=== PATIENT | male | born 1975 | race African-American/Black ===

== ENCOUNTER 2016-08-28 10:04 | Inpatient (IN) | payer OTHER ==
[2016-08-28 10:19] VITALS: BMI 24.6
--- NOTE | 2016-08-28 12:50 | HP ---
CIWA Score - CIWA Score Nausea/Vomitin-No Nausea/No Vomiting Muscle Tremors: 4-Moderate,w/Arms Extend Anxiety: 3 Agitation: 3 Paroxysmal Sweats: 3 Orientation: 0-Oriented Tacttile Disturbances: 0-None Auditory Disturbances: 0-None Visual Disturbances: 0-None Headache: 0-None Present CIWA-Ar Total Score: 13 Admission ROS BHS - HPI Chief Complaint: I am here because I am mandated by my adult parole officer to receive tx. Allergies/Adverse Reactions: Allergies Allergy/AdvReac Type Severity Reaction Status Date / Time shellfish derived Allergy Severe Swelling Verified 08/28/16 11:11 NKDA Allergy Uncoded 08/28/16 11:12 History of Present Illness: pt is a 41yr old male with a history of alcohol dependence only seeking detox for treatment. Exam Limitations: No Limitations - Ebola screening Have you traveled outside of the country in the last 21 days: No Have you had contact with anyone from an Ebola affected area: No Have you been sick,other than usual withdrawal symptoms: No Do you have a fever: No - Review of Systems Constitutional: No Symptoms Reported EENT: reports: No Symptoms Reported Respiratory: reports: No Symptoms reported Cardiac: reports: No Symptoms Reported GI: reports: Poor Appetite, Poor Fluid Intake : reports: No Symptoms Reported Musculoskeletal: reports: No Symptoms Reported (chonic right shoulder pain.), Joint Pain Integumentary: reports: Flushing Neuro: reports: Tingling, Tremors Endocrine: reports: Excessive Sweating, Flushing, Intolerance to Cold, Intolerance to Heat Hematology: reports: No Symptoms Reported Psychiatric: reports: Judgement Intact, Mood/Affect Appropiate, Orientated x3, Agitated, Anxious Other Systems: Reviewed and Negative Patient History - Patient Medical History Hx Anemia: No Hx Asthma: No Hx Chronic Obstructive Pulmonary Disease (COPD): No Hx Cancer: No Hx Cardiac Disorders: No Hx Congestive Heart Failure: No Hx Hypertension: No Hx Hypercholesterolemia: No Hx Pacemaker: No HX Cerebrovascular Accident: No Hx Seizures: No Hx Dementia: No Hx Diabetes: No Hx Gastrointestinal Disorders: No Hx Liver Disease: No Hx Genitourinary Disorders: No Hx Sexually Transmitted Disorders: No Hx Renal Disease (ESRD): No Hx Thyroid Disease: No Hx Human Immunodeficiency Virus (HIV): No (negative) Hx Hepatitis C: No (negative) Hx Depression: Yes (manic) Hx Suicide Attempt: Yes (thought of jumping off roof in 1992) Hx Schizophrenia: No - Patient Surgical History Past Surgical History: No Hx Neurologic Surgery: No Hx Cataract Extraction: No Hx Cardiac Surgery: No Hx Lung Surgery: No Hx Breast Surgery: No Hx Breast Biopsy: No Hx Abdominal Surgery: No Hx Appendectomy: No Hx Cholecystectomy: No Hx Genitourinary Surgery: No Hx Section: No Hx Orthopedic Surgery: No Anesthesia Reaction: No - PPD History Previous Implant?: Yes Documented Results: Negative w/o proof Implanted On Prior R Admission?: No PPD to be Administered?: Yes - Reproductive History Patient is a Female of Child Bearing Age (11 -55 yrs old): No - Smoking Cessation Smoking history: Current every day smoker Have you smoked in the past 12 months: Yes Aproximately how many cigarettes per day: 4 Hx Chewing Tobacco Use: No Initiated information on smoking cessation: Yes 'Breaking Loose' booklet given: 08/28/16 - Substance & Tx. History Hx Alcohol Use: Yes Hx Substance Use: No Substance Use Type: Alcohol Hx Substance Use Treatment: Yes - Substances Abused Alcohol-beer Route: Oral Frequency: Daily Amount used: 7 (40 oz.) beer Age of first use: 11 Date of Last Use: 08/27/16 Family Disease History - Family Disease History Family History: Denies Admission Physical Exam S - Vital Signs Vital Signs: Vital Signs - 24 hr 08/28/16 10:17 Temperature 98.1 F Pulse Rate 89 Respiratory 18 Rate Blood Pressure 128/69 - Physical General Appearance: Yes: Appropriately Dressed, Moderate Distress, Tremorous, Irritable, Sweating, Anxious HEENTM: Yes: Hearing grossly Normal, Normal Voice Respiratory: Yes: Lungs Clear, Normal Breath Sounds, No Respiratory Distress Neck: Yes: No masses,lesions,Nodules Breast: Yes: Within Normal Limits Cardiology: Yes: Regular Rhythm, Regular Rate, S1, S2 Abdominal: Yes: Normal Bowel Sounds, Non Tender Genitourinary: Yes: Within Normal Limits Back: Yes: Normal Inspection Musculoskeletal: Yes: full range of Motion Extremities: Yes: Normal Inspection, Non-Tender, Tremors Neurological: Yes: Fully Oriented, Alert, Normal Response Integumentary: Yes: Normal Color, Diaphoresis Lymphatic: Yes: Within Normal Limits - Diagnostic (1) Alcohol dependence with uncomplicated withdrawal Current Visit: Yes Status: Chronic (2) Manic depression Current Visit: Yes Status: Chronic (3) Nicotine dependence Current Visit: Yes Status: Chronic Qualifiers: Nicotine product type: cigarettes Substance use status: uncomplicated Qualified Code(s): F17.210 - Nicotine dependence, cigarettes, uncomplicated Cleared for Admission S - Detox or Rehab [facility] Level of Care: Medically Managed Detox Regimen/Protocol: Librium S Breath Alcohol Content Breath Alcohol Content: 0.027 Urine Drug Screen - Results Drug Screen Negative: Yes
[2016-08-28] MEDS ORDERED: MAGNESIUM HYDROX 2400MG/30ML ORAL SUSPENSION 30 ML CUP PO PRN (12:52)
[2016-08-28] MEDS ORDERED: MAG HYDROX/AL HYDROX/SIMETH 30 ML UNIT-DOSE CUP PO PRN (12:52)
[2016-08-28] MEDS ORDERED: P-EPHED 60MG/TRIPROLIDI 2.5MG TABLET PO PRN (12:52)
[2016-08-28] MEDS ORDERED: hydrOXYzine PAMOATE 50 MG CAPSULE (FP) PO PRN (12:52)
[2016-08-28] MEDS ORDERED: chlordiazePOXIDE HCL 25 MG CAPSULE PO PRN (12:52)
[2016-08-28] MEDS ORDERED: ACETAMINOPHEN 325 MG TABLET (FP) PO PRN (12:52)
[2016-08-28] MEDS ORDERED: MENTHOL/PHENOL 1 EACH UD MM PRN (12:52)
[2016-08-28] MEDS ORDERED: LOPERAMIDE HCL 2 MG CAPSULE PO PRN (12:52)
[2016-08-28] MEDS ORDERED: MAGNESIUM CITRATE 300 ML BOTTLE PO PRN (12:52)
[2016-08-28] MEDS ORDERED: guaiFENesin/D-METHORPHAN HB 10 ML UNIT-DOSE CUPS PO PRN (12:52)
[2016-08-28] MEDS ORDERED: IBUPROFEN 400 MG TABLET (FP) PO PRN (12:52)
[2016-08-28] MEDS ORDERED: chlordiazePOXIDE HCL 25 MG CAPSULE PO ONE (14:13)
[2016-08-28 15:17] LABS: HIV 1 & 2 AB NEGATIVE; HIV 1 AGp24 NEGATIVE
[2016-08-28 15:50] LABS: URINE APPEARANCE CLEAR; URINE BILIRUBIN NEGATIVE (NEGATIVE); URINE BLOOD NEGATIVE (NEGATIVE); URINE COLOR COLORLESS; URINE GLUCOSE (UA) NEGATIVE (NEGATIVE); URINE KETONE NEGATIVE (NEGATIVE); URINE LEUK ESTERASE NEGATIVE (NEGATIVE); URINE NITRITE NEGATIVE (NEGATIVE); URINE PROTEIN NEGATIVE (NEGATIVE); URINE UROBILINOGEN NEGATIVE E.U./dl (0.2-1.0)
[2016-08-28] MEDS: chlordiazePOXIDE HCL 25 MG CAPSULE PO SCH ×2 (17:19→22:17)
[2016-08-28] MEDS: METHYL SALICYLATE/MENTHOL OINT 30 GM TUBE TP SCH (22:16)
[2016-08-28] MEDS: THIAMINE HCL 100 MG TABLET (FP) PO SCH (22:16)
[2016-08-28] MEDS: diphenhydrAMINE HCL 50 MG CAPSULE PO PRN (22:17)
--- NOTE | 2016-08-28 23:36 | EKG ---
Test Reason : Blood Pressure : / mmHG Vent. Rate : 087 BPM Atrial Rate : 087 BPM P-R Int : 130 ms QRS Dur : 090 ms QT Int : 364 ms P-R-T Axes : 071 060 061 degrees QTc Int : 438 ms NORMAL SINUS RHYTHM NORMAL ECG NO PREVIOUS ECGS AVAILABLE Confirmed by ELIAN FRIAS MD ([id number]) on 08/28/2016 11:36:15 PM Referred By: Mariano Guy Confirmed By:ELIAN FRIAS MD
[2016-08-29] MEDS: chlordiazePOXIDE HCL 25 MG CAPSULE PO SCH ×4 (05:50→22:27)
[2016-08-29 09:49] LABS: MCH 30.3 pg (25.7-33.7); MCHC 33.1 g/dl (32.0-35.9); MEAN CELL VOLUME 91.7 fl (80-96); MEAN PLT VOLUME 8.3 fl (7.5-11.1); PLATELET COUNT 281 K/MM3 (134-434); RDW 13.1 % (11.9-15.9); WHITE BLOOD COUNT 5.1 K/mm3 (4.0-10.0)
[2016-08-29 10:16] LABS: ALBUMIN 4.3 g/dl (3.4-5.0); ALK PHOS 94 U/L (45-117); ANION GAP 7 (8-16); BILIRUBIN,TOTAL 1.2 mg/dL (0.2-1.0); CALCIUM 9.8 mg/dL (8.5-10.1); CO2 31 mmol/L (21-32); CREATININE 1.2 mg/dL (0.7-1.3); GLUCOSE,RANDOM 96 mg/dL (74-106); SGOT/AST 24 U/L (15-37); SGPT/ALT 27 U/L (12-78); TOT PROT 8.1 g/dl (6.4-8.2)
[2016-08-29] MEDS: METHYL SALICYLATE/MENTHOL OINT 30 GM TUBE TP SCH ×2 (10:28→22:27)
[2016-08-29] MEDS: PRENATAL VITAMINS W/ FOLIC ACID TABLET (FP) PO SCH (10:28)
--- NOTE | 2016-08-29 11:14 | PN ---
[facility] CIWA - CIWA Score Nausea/Vomitin-No Nausea/No Vomiting Muscle Tremors: 4-Moderate,w/Arms Extend Anxiety: 4-Mod. Anxious/Guarded Agitation: 4-Moderately Restless Paroxysmal Sweats: 1-Minimal Palms Moist Orientation: 0-Oriented Tacttile Disturbances: 3-Moderate Itch/Numb/Burn Auditory Disturbances: 0-None Visual Disturbances: 0-None Headache: 0-None Present CIWA-Ar Total Score: 16 BHS Progress Note (SOAP) Subjective: ANXIETY,SWEATS,TREMORS. Objective: 08/29/16 11:13 Vital Signs Temperature 99.2 F 08/29/16 09:40 Pulse Rate 84 08/29/16 09:40 Respiratory Rate 18 08/29/16 09:40 Blood Pressure 118/73 08/29/16 09:40 O2 Sat by Pulse Oximetry (%) Laboratory Last Values WBC 5.1 K/mm3 (4.0-10.0) 08/29/16 06:00 RBC 5.02 M/mm3 (4.00-5.60) 08/29/16 06:00 Hgb 15.2 GM/dL (11.7-16.9) 08/29/16 06:00 Hct 46.0 % (35.4-49) 08/29/16 06:00 MCV 91.7 fl (80-96) 08/29/16 06:00 MCHC 33.1 g/dl (32.0-35.9) 08/29/16 06:00 RDW 13.1 % (11.9-15.9) 08/29/16 06:00 Plt Count 281 K/MM3 (134-434) 08/29/16 06:00 MPV 8.3 fl (7.5-11.1) 08/29/16 06:00 Sodium 137 mmol/L (136-145) 08/29/16 06:00 Potassium 4.9 mmol/L (3.5-5.1) 08/29/16 06:00 Chloride 99 mmol/L (98-107) 08/29/16 06:00 Carbon Dioxide 31 mmol/L (21-32) 08/29/16 06:00 Anion Gap 7 (8-16) L 08/29/16 06:00 BUN 15 mg/dL (7-18) 08/29/16 06:00 Creatinine 1.2 mg/dL (0.7-1.3) 08/29/16 06:00 Creat Clearance w eGFR > 60 (>60) 08/29/16 06:00 Random Glucose 96 mg/dL (74-106) 08/29/16 06:00 Calcium 9.8 mg/dL (8.5-10.1) 08/29/16 06:00 Total Bilirubin 1.2 mg/dL (0.2-1.0) H 08/29/16 06:00 AST 24 U/L (15-37) 08/29/16 06:00 ALT 27 U/L (12-78) 08/29/16 06:00 Alkaline Phosphatase 94 U/L (45-117) 08/29/16 06:00 Total Protein 8.1 g/dl (6.4-8.2) 08/29/16 06:00 Albumin 4.3 g/dl (3.4-5.0) 08/29/16 06:00 Urine Color Colorless 08/28/16 14:00 Urine Appearance Clear 08/28/16 14:00 Urine pH 6.0 (5.0-8.0) 08/28/16 14:00 Ur Specific [place] 1.003 (1.001-1.035) 08/28/16 14:00 Urine Protein Negative (NEGATIVE) 08/28/16 14:00 Urine Glucose (UA) Negative (NEGATIVE) 08/28/16 14:00 Urine Ketones Negative (NEGATIVE) 08/28/16 14:00 Urine Blood Negative (NEGATIVE) 08/28/16 14:00 Urine Nitrite Negative (NEGATIVE) 08/28/16 14:00 Urine Bilirubin Negative (NEGATIVE) 08/28/16 14:00 Urine Urobilinogen Negative E.U./dl (0.2-1.0) 08/28/16 14:00 Ur Leukocyte Esterase Negative (NEGATIVE) 08/28/16 14:00 HIV 1&2 Antibody Screen Negative 08/28/16 11:35 HIV P24 Antigen Negative 08/28/16 11:35 Assessment: 08/29/16 11:14 WITHDRAWAL SX Plan: CONTINUE DETOX
--- NOTE | 2016-08-29 17:22 | CONSULT ---
[facility] Psychiatric Consult - Data Date of interview: 08/29/16 Admission source: [facility] Identifying data: First admission to [facility] for this 41 y/oAA male seking detox teatment for alcohol dependence.Patient is single without children, domiciled,unemployed and supported on SSI benefits. Substance Abuse History: - Smoking Cessation. Smoking history: Current every day smoker. Have you smoked in the past 12 months: Yes. Aproximately how many cigarettes per day: 4. Hx Chewing Tobacco Use: No. Initiated information on smoking cessation: Yes. 'Breaking Loose' booklet given: 08/28/16. - Substance & Tx. History. Hx Alcohol Use: Yes. Hx Substance Use: No. Substance Use Type : Alcohol. Hx Substance Use Treatment: Yes. - Substances Abused. Alcohol- beer. Route: Oral. Frequency: Daily. Amount used: 7 (40 oz.) beer. Age of first use: 11. Date of Last Use: 08/27/16. Confirmed by patient. Medical History: Patient endorses good general health. Psychiatric History: Past history of psychiatric hospitalization at [facility] (1992) for affective dysregulation and acute suicidal ideation/ intent to jump off a roof at the of his biological mother.Has been,since, diagnosed with MDD.Prescribed zoloft 50 mg/day.Mr Kristin BOLES sees a psychiatrist at the [facility] in [facility]. Physical/Sexual Abuse/Trauma History: Patient denies. Additional Comment: Drug Screen Negative: Yes .Noted. Mental Status Exam - Mental Status Exam Alert and Oriented to: Time, Place, Person Cognitive Function: Good Patient Appearance: Well Groomed Mood: Hopeful, Euthymic Affect: Appropriate, Normal Range Patient Behavior: Fatigued, Appropriate, Cooperative Speech Pattern: Clear, Appropriate Voice Loudness: Normal Thought Process: Goal Oriented Thought Disorder: Not Present Hallucinations: Denies Suicidal Ideation: Denies Homicidal Ideation: Denies Insight/Judgement: Fair Sleep: Well (self-report) Appetite: Good Muscle strength/Tone: Normal Gait/Station: Normal Psychiatric Findings - Problem List ([place] 1, 2,3) (1) Alcohol dependence with uncomplicated withdrawal Current Visit: Yes Status: Chronic (2) Nicotine dependence Current Visit: Yes Status: Chronic Qualifiers: Nicotine product type: cigarettes Substance use status: uncomplicated Qualified Code(s): F17.210 - Nicotine dependence, cigarettes, uncomplicated (3) Alcohol-induced mood disorder Current Visit: Yes Status: Chronic (4) MDD (major depressive disorder) Current Visit: Yes Status: Acute Comment: Historical diagnosis. - Initial Treatment Plan Initial Treatment Plan: Psychoeducation.Detoxification.Zoloft 50 mg po daily.Side effects/benefits discussed with patient.He agrees with careplan.Observation.
[2016-08-29] MEDS: THIAMINE HCL 100 MG TABLET (FP) PO SCH (22:27)
[2016-08-29] MEDS: diphenhydrAMINE HCL 50 MG CAPSULE PO PRN (22:28)
[2016-08-30] MEDS: chlordiazePOXIDE HCL 25 MG CAPSULE PO SCH ×2 (05:52→10:25)
[2016-08-30] MEDS: CYCLOBENZAPRINE HCL 10 MG TABLET (FP) PO PRN (05:52)
[2016-08-30] MEDS: SERTRALINE HCL 50 MG TABLET (FP) PO SCH (10:25)
[2016-08-30] MEDS: METHYL SALICYLATE/MENTHOL OINT 30 GM TUBE TP SCH ×2 (10:25→22:29)
[2016-08-30] MEDS: PRENATAL VITAMINS W/ FOLIC ACID TABLET (FP) PO SCH (10:25)
--- NOTE | 2016-08-30 11:54 | PN ---
[facility] CIWA - CIWA Score Nausea/Vomitin-Mild Nausea/No Vomiting Muscle Tremors: 4-Moderate,w/Arms Extend Anxiety: 3 Agitation: 2 Paroxysmal Sweats: 2 Orientation: 2-Disoriented Date<2 days Tacttile Disturbances: 2-Mild Itch/Numbness/Burn Auditory Disturbances: 0-None Visual Disturbances: 0-None Headache: 0-None Present CIWA-Ar Total Score: 16 BHS Progress Note (SOAP) Subjective: Tremors, Anxious, Sweating. Objective: PT. A & O X 2 (DISORIENTED ABOUT DAY/ DATE). PT. OBSERVED AMBULATING ON UNIT. 08/30/16 11:52 Vital Signs Temperature 97.8 F 08/30/16 09:19 Pulse Rate 77 08/30/16 09:19 Respiratory Rate 20 08/30/16 09:19 Blood Pressure 115/75 08/30/16 09:19 O2 Sat by Pulse Oximetry (%) Laboratory Last Values WBC 5.1 K/mm3 (4.0-10.0) 08/29/16 06:00 RBC 5.02 M/mm3 (4.00-5.60) 08/29/16 06:00 Hgb 15.2 GM/dL (11.7-16.9) 08/29/16 06:00 Hct 46.0 % (35.4-49) 08/29/16 06:00 MCV 91.7 fl (80-96) 08/29/16 06:00 MCHC 33.1 g/dl (32.0-35.9) 08/29/16 06:00 RDW 13.1 % (11.9-15.9) 08/29/16 06:00 Plt Count 281 K/MM3 (134-434) 08/29/16 06:00 MPV 8.3 fl (7.5-11.1) 08/29/16 06:00 Sodium 137 mmol/L (136-145) 08/29/16 06:00 Potassium 4.9 mmol/L (3.5-5.1) 08/29/16 06:00 Chloride 99 mmol/L (98-107) 08/29/16 06:00 Carbon Dioxide 31 mmol/L (21-32) 08/29/16 06:00 Anion Gap 7 (8-16) L 08/29/16 06:00 BUN 15 mg/dL (7-18) 08/29/16 06:00 Creatinine 1.2 mg/dL (0.7-1.3) 08/29/16 06:00 Creat Clearance w eGFR > 60 (>60) 08/29/16 06:00 Random Glucose 96 mg/dL (74-106) 08/29/16 06:00 Calcium 9.8 mg/dL (8.5-10.1) 08/29/16 06:00 Total Bilirubin 1.2 mg/dL (0.2-1.0) H 08/29/16 06:00 AST 24 U/L (15-37) 08/29/16 06:00 ALT 27 U/L (12-78) 08/29/16 06:00 Alkaline Phosphatase 94 U/L (45-117) 08/29/16 06:00 Total Protein 8.1 g/dl (6.4-8.2) 08/29/16 06:00 Albumin 4.3 g/dl (3.4-5.0) 08/29/16 06:00 Urine Color Colorless 08/28/16 14:00 Urine Appearance Clear 08/28/16 14:00 Urine pH 6.0 (5.0-8.0) 08/28/16 14:00 Ur Specific [place] 1.003 (1.001-1.035) 08/28/16 14:00 Urine Protein Negative (NEGATIVE) 08/28/16 14:00 Urine Glucose (UA) Negative (NEGATIVE) 08/28/16 14:00 Urine Ketones Negative (NEGATIVE) 08/28/16 14:00 Urine Blood Negative (NEGATIVE) 08/28/16 14:00 Urine Nitrite Negative (NEGATIVE) 08/28/16 14:00 Urine Bilirubin Negative (NEGATIVE) 08/28/16 14:00 Urine Urobilinogen Negative E.U./dl (0.2-1.0) 08/28/16 14:00 Ur Leukocyte Esterase Negative (NEGATIVE) 08/28/16 14:00 RPR Titer Nonreactive (NONREACTIVE) 08/29/16 06:00 HIV 1&2 Antibody Screen Negative 08/28/16 11:35 HIV P24 Antigen Negative 08/28/16 11:35 LABS NOTED. Assessment: 08/30/16 11:53 WITHDRAWAL SYMPTOMS. Plan: CONTINUE DETOX. ADVISED PATIENT TO FOLLOW-UP WITH [facility] COORDINATION SPECIALIST / REHAB MEDICAL PROVIDER AFTER DISCHARGE FROM DETOX FOR GENERAL MEDICAL ASSESSMENT AND FOR ANY ABNORMAL ADMISSION LAB VALUES.
[2016-08-30] MEDS: chlordiazePOXIDE 5 MG CAPSULE PO SCH ×2 (17:19→22:28)
[2016-08-30] MEDS: THIAMINE HCL 100 MG TABLET (FP) PO SCH (22:28)
[2016-08-31] MEDS: CYCLOBENZAPRINE HCL 10 MG TABLET (FP) PO PRN (05:35)
[2016-08-31] MEDS: chlordiazePOXIDE 5 MG CAPSULE PO SCH ×2 (05:35→10:17)
[2016-08-31] MEDS: METHYL SALICYLATE/MENTHOL OINT 30 GM TUBE TP SCH ×2 (10:17→22:11)
[2016-08-31] MEDS: PRENATAL VITAMINS W/ FOLIC ACID TABLET (FP) PO SCH (10:17)
[2016-08-31] MEDS: SERTRALINE HCL 50 MG TABLET (FP) PO SCH (10:17)
--- NOTE | 2016-08-31 15:19 | PN ---
BHS Progress Note (SOAP) Subjective: Sweating,interrupted sleep,restless Objective: 08/31/16 15:18 Vital Signs - 8 hr 08/31/16 08/31/16 10:48 14:21 Temperature 97.4 F L 99.0 F Pulse Rate 83 100 H Respiratory 20 18 Rate Blood Pressure 132/79 122/78 Laboratory Last Values WBC 5.1 K/mm3 (4.0-10.0) 08/29/16 06:00 RBC 5.02 M/mm3 (4.00-5.60) 08/29/16 06:00 Hgb 15.2 GM/dL (11.7-16.9) 08/29/16 06:00 Hct 46.0 % (35.4-49) 08/29/16 06:00 MCV 91.7 fl (80-96) 08/29/16 06:00 MCHC 33.1 g/dl (32.0-35.9) 08/29/16 06:00 RDW 13.1 % (11.9-15.9) 08/29/16 06:00 Plt Count 281 K/MM3 (134-434) 08/29/16 06:00 MPV 8.3 fl (7.5-11.1) 08/29/16 06:00 Sodium 137 mmol/L (136-145) 08/29/16 06:00 Potassium 4.9 mmol/L (3.5-5.1) 08/29/16 06:00 Chloride 99 mmol/L (98-107) 08/29/16 06:00 Carbon Dioxide 31 mmol/L (21-32) 08/29/16 06:00 Anion Gap 7 (8-16) L 08/29/16 06:00 BUN 15 mg/dL (7-18) 08/29/16 06:00 Creatinine 1.2 mg/dL (0.7-1.3) 08/29/16 06:00 Creat Clearance w eGFR > 60 (>60) 08/29/16 06:00 Random Glucose 96 mg/dL (74-106) 08/29/16 06:00 Calcium 9.8 mg/dL (8.5-10.1) 08/29/16 06:00 Total Bilirubin 1.2 mg/dL (0.2-1.0) H 08/29/16 06:00 AST 24 U/L (15-37) 08/29/16 06:00 ALT 27 U/L (12-78) 08/29/16 06:00 Alkaline Phosphatase 94 U/L (45-117) 08/29/16 06:00 Total Protein 8.1 g/dl (6.4-8.2) 08/29/16 06:00 Albumin 4.3 g/dl (3.4-5.0) 08/29/16 06:00 Urine Color Colorless 08/28/16 14:00 Urine Appearance Clear 08/28/16 14:00 Urine pH 6.0 (5.0-8.0) 08/28/16 14:00 Ur Specific [place] 1.003 (1.001-1.035) 08/28/16 14:00 Urine Protein Negative (NEGATIVE) 08/28/16 14:00 Urine Glucose (UA) Negative (NEGATIVE) 08/28/16 14:00 Urine Ketones Negative (NEGATIVE) 08/28/16 14:00 Urine Blood Negative (NEGATIVE) 08/28/16 14:00 Urine Nitrite Negative (NEGATIVE) 08/28/16 14:00 Urine Bilirubin Negative (NEGATIVE) 08/28/16 14:00 Urine Urobilinogen Negative E.U./dl (0.2-1.0) 08/28/16 14:00 Ur Leukocyte Esterase Negative (NEGATIVE) 08/28/16 14:00 RPR Titer Nonreactive (NONREACTIVE) 08/29/16 06:00 HIV 1&2 Antibody Screen Negative 08/28/16 11:35 HIV P24 Antigen Negative 08/28/16 11:35 labs noted Assessment: 08/31/16 15:18 Withdrawal sx. Plan: Continue detox
[2016-08-31] MEDS: chlordiazePOXIDE HCL 10 MG CAPSULE PO SCH ×2 (17:16→22:10)
[2016-08-31] MEDS: THIAMINE HCL 100 MG TABLET (FP) PO SCH (22:10)
[2016-09-01] MEDS: chlordiazePOXIDE HCL 10 MG CAPSULE PO SCH (05:31)
[2016-09-01 06:37] VITALS: BP 114/75; PULSE 76; TEMP 97.1
--- NOTE | 2016-09-01 13:29 | DS ---
[facility] Detox Discharge Summary Admission Date: 08/28/16 Discharge Date: 09/01/16 - History Present History: Alcohol Dependence Pertinent Past History: Mood disorder - Physical Exam Results Vital Signs: Vital Signs Temperature 97.1 F L 09/01/16 06:36 Pulse Rate 76 09/01/16 06:36 Respiratory Rate 18 09/01/16 06:36 Blood Pressure 114/75 09/01/16 06:36 O2 Sat by Pulse Oximetry (%) Pertinent Admission Physical Exam Findings: Withdrawal sx. Laboratory Tests 08/28/16 08/28/16 08/29/16 11:35 14:00 06:00 WBC 5.1 RBC 5.02 Hgb 15.2 Hct 46.0 MCV 91.7 MCHC 33.1 RDW 13.1 Plt Count 281 MPV 8.3 Sodium Potassium Chloride Carbon Dioxide Anion Gap BUN Creatinine Creat Clearance w eGFR Random Glucose Calcium Total Bilirubin AST ALT Alkaline Phosphatase Total Protein Albumin Urine Color Colorless Urine Appearance Clear Urine pH 6.0 Ur Specific [place] 1.003 Urine Protein Negative Urine Glucose (UA) Negative Urine Ketones Negative Urine Blood Negative Urine Nitrite Negative Urine Bilirubin Negative Urine Urobilinogen Negative Ur Leukocyte Esterase Negative RPR Titer HIV 1&2 Antibody Screen Negative HIV P24 Antigen Negative 08/29/16 08/29/16 06:00 06:00 WBC RBC Hgb Hct MCV MCHC RDW Plt Count MPV Sodium 137 Potassium 4.9 Chloride 99 Carbon Dioxide 31 Anion Gap 7 L BUN 15 Creatinine 1.2 Creat Clearance w eGFR > 60 Random Glucose 96 Calcium 9.8 Total Bilirubin 1.2 H AST 24 ALT 27 Alkaline Phosphatase 94 Total Protein 8.1 Albumin 4.3 Urine Color Urine Appearance Urine pH Ur Specific [place] Urine Protein Urine Glucose (UA) Urine Ketones Urine Blood Urine Nitrite Urine Bilirubin Urine Urobilinogen Ur Leukocyte Esterase RPR Titer Nonreactive HIV 1&2 Antibody Screen HIV P24 Antigen labs noted - Treatment Hospital Course: Detox Protocol Followed, Detoxed Safely, Responded well, Discharged Condition Good, Rehab Referral Accepted Patient has Accepted a Rehab Referral to: / step meetings - Medication Discharge Medications: Ambulatory Orders Sertraline HCl [Zoloft -] 50 mg PO HS 08/28/16 Sertraline HCl [Zoloft -] 50 mg PO DAILY #30 tablet 08/29/16 - Diagnosis (1) MDD (major depressive disorder) Status: Acute (2) Alcohol dependence with uncomplicated withdrawal Status: Acute (3) Alcohol-induced mood disorder Status: Acute (4) Nicotine dependence Status: Acute Qualifiers: Nicotine product type: cigarettes Substance use status: uncomplicated Qualified Code(s): F17.210 - Nicotine dependence, cigarettes, uncomplicated - AMA Did Patient Leave Against Medical Advice: No
== END 2016-09-01 08:47 | disposition home or self-care (01) | DRG 775 ==
LOC: YASAS 10:04 → Y3N 13:17
PROVIDERS: ADMIT Internal Medicine; ATTEND Internal Medicine
PROC: HZ2ZZZZ Detoxification Services for Substance Abuse Treatment (ICD-10-PCS; principal; 2016-09-01)
DX: F10.230 Alcohol dependence with withdrawal, uncomplicated (principal); F17.210 Nicotine dependence, cigarettes, uncomplicated; F33.9 Major depressive disorder, recurrent, unspecified; F10.24 Alcohol dependence with alcohol-induced mood disorder
CPT/HCPCS: 36415; 80053; 81003; 85027; 86593; 87389; 93005; 93010

== ENCOUNTER 2016-11-09 09:40 | Inpatient (IN) | payer OTHER ==
[2016-11-09 10:07] VITALS: BMI 23.6
--- NOTE | 2016-11-09 13:28 | HP ---
CIWA Score - CIWA Score Nausea/Vomitin-Mild Nausea/No Vomiting Muscle Tremors: 4-Moderate,w/Arms Extend Anxiety: 2 Agitation: 2 Paroxysmal Sweats: 3 Orientation: 0-Oriented Tacttile Disturbances: 2-Mild Itch/Numbness/Burn Auditory Disturbances: 1-Very Mild Visual Disturbances: 0-None Headache: 0-None Present CIWA-Ar Total Score: 15 Admission ROS [facility] - HPI Chief Complaint: I'm here because I want to kick the habit of drinking and I want to hold on to my sobriety." Pt is here to Detox from alcohol. Allergies/Adverse Reactions: Allergies Allergy/AdvReac Type Severity Reaction Status Date / Time peanut Allergy Severe Hives Verified 11/09/16 10:56 shellfish derived Allergy Severe Swelling Verified 11/09/16 10:56 strawberry Allergy Severe Hives Verified 11/09/16 10:56 No Known Drug Allergies Allergy Verified 11/09/16 10:56 NKDA Allergy Uncoded 11/09/16 10:56 History of Present Illness: Pt. is a 41 YO male here to Detox from Alcohol. Pt. had 1 previous Detox admission at [facility] in August,. Longest period of previous sobriety: approx. 5 years (age 14 - 19). Exam Limitations: No Limitations - Ebola screening Have you traveled outside of the country in the last 21 days: No Have you had contact with anyone from an Ebola affected area: No Have you been sick,other than usual withdrawal symptoms: No Do you have a fever: No - Review of Systems Constitutional: Diaphoresis, Malaise EENT: reports: No Symptoms Reported Respiratory: reports: No Symptoms reported Cardiac: reports: No Symptoms Reported GI: reports: No Symptoms Reported : reports: No Symptoms Reported Musculoskeletal: reports: No Symptoms Reported Integumentary: reports: No Symptoms Reported Neuro: reports: Tremors Endocrine: reports: No Symptoms Reported Hematology: reports: No Symptoms Reported Psychiatric: reports: Judgement Intact, Mood/Affect Appropiate, Orientated x3, Depressed (Takes Zoloft, 50 mg daily.) Other Systems: Reviewed and Negative Patient History - Patient Medical History Hx Anemia: No Hx Asthma: No Hx Chronic Obstructive Pulmonary Disease (COPD): No Hx Cancer: No Hx Cardiac Disorders: No Hx Congestive Heart Failure: No Hx Hypertension: Yes (No meds.) Hx Hypercholesterolemia: No Hx Pacemaker: No HX Cerebrovascular Accident: No Hx Seizures: No Hx Dementia: No Hx Diabetes: No Hx Gastrointestinal Disorders: No Hx Liver Disease: No Hx Genitourinary Disorders: No Hx Sexually Transmitted Disorders: No Hx Renal Disease (ESRD): No Hx Thyroid Disease: No Hx Human Immunodeficiency Virus (HIV): No (Last Tested: 08/2016: NEGATIVE.) Hx Hepatitis C: No (Last Tested: Age 19: NEGATIVE. PT. DECLINES TESTING FOR THIS VISIT.) Hx Depression: Yes (Takes med.) Hx Suicide Attempt: Yes (thought of jumping off building in 1992; PATIENT DENIES CURRENT SI / HI.) Hx Bipolar Disorder: Yes Hx Schizophrenia: No - Patient Surgical History Past Surgical History: No Hx Neurologic Surgery: No Hx Cataract Extraction: No Hx Cardiac Surgery: No Hx Lung Surgery: No Hx Breast Surgery: No Hx Breast Biopsy: No Hx Abdominal Surgery: No Hx Appendectomy: No Hx Cholecystectomy: No Hx Genitourinary Surgery: No Hx Section: No Hx Orthopedic Surgery: No Anesthesia Reaction: No - PPD History Previous Implant?: Yes Documented Results: Negative w/proof Implanted On Prior [facility] Admission?: Yes Date: 08/30/16 Results: 0 mm PPD to be Administered?: No - Reproductive History Patient is a Female of Child Bearing Age (11 -55 yrs old): No (PATIENT IS MALE.) - Smoking Cessation Smoking history: Current every day smoker Have you smoked in the past 12 months: Yes Aproximately how many cigarettes per day: 2 Cigars Per Day: 0 Hx Chewing Tobacco Use: No Initiated information on smoking cessation: Yes 'Breaking Loose' booklet given: 11/09/16 (GIVEN ON UNIT.) - Substance & Tx. History Hx Alcohol Use: Yes Hx Substance Use: Yes Substance Use Type: Alcohol Hx Substance Use Treatment: Yes (1 Previous Detox Admission at [facility] (08/2016).) - Substances Abused Alcohol-beer Route: Oral Frequency: Daily Amount used: 6 (40 oz.) Age of first use: 11 Date of Last Use: 11/07/16 Family Disease History - Family Disease History Family Disease History: Other: Mother (Bipolar disorder, .) Admission Physical Exam [facility] - Vital Signs Vital Signs: Vital Signs - 24 hr 11/09/16 10:04 Temperature 96.8 F L Pulse Rate 77 Respiratory 18 Rate Blood Pressure 143/89 - Physical General Appearance: Yes: No Apparent Distress, Nourished, Appropriately Dressed , Tremorous HEENTM: Yes: Hearing grossly Normal, Normocephalic, Normal Voice, ITZEL, Pharynx Normal Respiratory: Yes: Chest Non-Tender, Lungs Clear, No Respiratory Distress Neck: Yes: No masses,lesions,Nodules, Supple, Trachea in good position Breast: Yes: Breast Exam Deferred Cardiology: Yes: Regular Rhythm, Regular Rate, S1, S2 Abdominal: Yes: Normal Bowel Sounds, Non Tender, Flat, Soft Genitourinary: Yes: Within Normal Limits Back: Yes: Within Normal Limits, Normal Inspection Musculoskeletal: Yes: full range of Motion, Gait Steady Extremities: Yes: Normal Range of Motion, Non-Tender, Tremors Neurological: Yes: Fully Oriented, Alert, Normal Mood/Affect, Normal Response Integumentary: Yes: Normal Color, Warm Lymphatic: Yes: Within Normal Limits - Diagnostic (1) Alcohol dependence with uncomplicated withdrawal Current Visit: Yes Status: Acute (2) Nicotine dependence Current Visit: Yes Status: Chronic Qualifiers: Nicotine product type: cigarettes Substance use status: uncomplicated Qualified Code(s): F17.210 - Nicotine dependence, cigarettes, uncomplicated (3) History of depression Current Visit: Yes Status: Chronic (4) History of bipolar disorder Current Visit: Yes Status: Chronic (5) Hypertension Current Visit: Yes Status: Chronic Qualifiers: Hypertension type: essential hypertension Qualified Code(s): I10 - Essential (primary) hypertension Cleared for Admission [facility] - Detox or Rehab [facility] Level of Care: Medically Managed Detox Regimen/Protocol: Librium S Breath Alcohol Content Breath Alcohol Content: 0 Urine Drug Screen - Results Drug Screen Negative: Yes
[2016-11-09] MEDS ORDERED: P-EPHED 60MG/TRIPROLIDI 2.5MG TABLET PO PRN (14:04)
[2016-11-09] MEDS ORDERED: LOPERAMIDE HCL 2 MG CAPSULE PO PRN (14:04)
[2016-11-09] MEDS ORDERED: diphenhydrAMINE HCL 50 MG CAPSULE PO PRN (14:04)
[2016-11-09] MEDS ORDERED: ACETAMINOPHEN 325 MG TABLET (FP) PO PRN (14:04)
[2016-11-09] MEDS ORDERED: MAGNESIUM CITRATE 300 ML BOTTLE PO PRN (14:04)
[2016-11-09] MEDS ORDERED: MAGNESIUM HYDROX 2400MG/30ML ORAL SUSPENSION 30 ML CUP PO PRN (14:04)
[2016-11-09] MEDS ORDERED: MAG HYDROX/AL HYDROX/SIMETH 30 ML UNIT-DOSE CUP PO PRN (14:04)
[2016-11-09] MEDS ORDERED: guaiFENesin/D-METHORPHAN HB 10 ML UNIT-DOSE CUPS PO PRN (14:04)
[2016-11-09] MEDS ORDERED: chlordiazePOXIDE HCL 25 MG CAPSULE PO PRN (14:04)
[2016-11-09] MEDS ORDERED: MENTHOL/PHENOL 1 EACH UD MM PRN (14:04)
[2016-11-09] MEDS ORDERED: IBUPROFEN 400 MG TABLET (FP) PO PRN (14:04)
[2016-11-09] MEDS ORDERED: hydrOXYzine PAMOATE 50 MG CAPSULE (FP) PO PRN (14:10)
[2016-11-09] MEDS ORDERED: chlordiazePOXIDE HCL 25 MG CAPSULE PO ONE (14:30)
[2016-11-09] MEDS: chlordiazePOXIDE HCL 25 MG CAPSULE PO SCH ×2 (17:50→22:09)
[2016-11-09] MEDS: THIAMINE HCL 100 MG TABLET (FP) PO SCH (22:09)
[2016-11-09 23:54] LABS: URINE APPEARANCE CLEAR; URINE BILIRUBIN NEGATIVE (NEGATIVE); URINE BLOOD NEGATIVE (NEGATIVE); URINE COLOR YELLOW; URINE GLUCOSE (UA) NEGATIVE (NEGATIVE); URINE KETONE NEGATIVE (NEGATIVE); URINE LEUK ESTERASE NEGATIVE (NEGATIVE); URINE NITRITE NEGATIVE (NEGATIVE); URINE PROTEIN NEGATIVE (NEGATIVE); URINE UROBILINOGEN NEGATIVE E.U./dl (0.2-1.0)
[2016-11-10] MEDS: chlordiazePOXIDE HCL 25 MG CAPSULE PO SCH ×4 (05:30→22:32)
--- NOTE | 2016-11-10 10:03 | EKG ---
Test Reason : Blood Pressure : / mmHG Vent. Rate : 070 BPM Atrial Rate : 070 BPM P-R Int : 132 ms QRS Dur : 088 ms QT Int : 382 ms P-R-T Axes : 059 062 053 degrees QTc Int : 412 ms NORMAL SINUS RHYTHM WITH SINUS ARRHYTHMIA INCOMPLETE RBBB Confirmed by THANIA ROJAS MD ([id number]) on 11/10/2016 10:03:10 AM Referred By: Mariano Guy Confirmed By:THANIA ROJAS MD
[2016-11-10 10:10] LABS: MCH 30.9 pg (25.7-33.7); MCHC 33.3 g/dl (32.0-35.9); MEAN CELL VOLUME 92.7 fl (80-96); MEAN PLT VOLUME 8.4 fl (7.5-11.1); PLATELET COUNT 298 K/MM3 (134-434); RDW 13.5 % (11.9-15.9); WHITE BLOOD COUNT 4.5 K/mm3 (4.0-10.0)
--- NOTE | 2016-11-10 10:38 | PN ---
S CIWA - CIWA Score Nausea/Vomitin-No Nausea/No Vomiting Muscle Tremors: 3 Anxiety: 3 Agitation: 2 Paroxysmal Sweats: 3 Orientation: 0-Oriented Tacttile Disturbances: 0-None Auditory Disturbances: 0-None Visual Disturbances: 0-None Headache: 0-None Present CIWA-Ar Total Score: 11 S Progress Note (SOAP) Subjective: Anxiety,tremors,sweating,interrupted sleep,restless. Objective: 11/10/16 10:39 Vital Signs - 8 hr 11/10/16 11/10/16 11/10/16 03:30 06:16 10:00 Temperature 97.7 F 99.0 F Pulse Rate 72 82 Respiratory 18 16 18 Rate Blood Pressure 120/72 104/63 Laboratory Tests 11/09/16 11/10/16 20:28 06:10 WBC 4.5 RBC 4.97 Hgb 15.4 Hct 46.1 MCV 92.7 MCHC 33.3 RDW 13.5 Plt Count 298 MPV 8.4 Urine Color Yellow Urine Appearance Clear Urine pH 8.0 D Urine Protein Negative Urine Glucose (UA) Negative Urine Ketones Negative Urine Blood Negative Urine Nitrite Negative Urine Bilirubin Negative Urine Urobilinogen Negative Ur Leukocyte Esterase Negative labs noted Assessment: 11/10/16 10:40 Withdrawal sx. Plan: Continue detox
[2016-11-10 10:44] LABS: ALBUMIN 4.1 g/dl (3.4-5.0); ANION GAP 9 (8-16); BILIRUBIN,TOTAL 0.5 mg/dL (0.2-1.0); CO2 32 mmol/L (21-32); GLUCOSE,RANDOM 116 mg/dL (74-106); SGOT/AST 20 U/L (15-37); SGPT/ALT 23 U/L (12-78); TOT PROT 7.6 g/dl (6.4-8.2)
[2016-11-10 10:45] LABS: ALK PHOS 96 U/L (45-117)
[2016-11-10] MEDS: PRENATAL VITAMINS W/ FOLIC ACID TABLET (FP) PO SCH (10:51)
--- NOTE | 2016-11-10 18:25 | CONSULT ---
[facility] Psychiatric Consult - Data Date of interview: 11/10/16 Admission source: [facility] Identifying data: Readmission to [facility] for this 41 y/oAA male seeking detox treatment for alcohol dependence.Patient is single without children,domiciled, unemployed and supported on SSI benefits. Substance Abuse History: - Smoking Cessation. Smoking history: Current every day smoker. Have you smoked in the past 12 months: Yes. Aproximately how many cigarettes per day: 2. Cigars Per Day: 0. Hx Chewing Tobacco Use: No. Initiated information on smoking cessation: Yes. 'Breaking Loose' booklet given : 11/09/16 (GIVEN ON UNIT.). - Substance & Tx. History. Hx Alcohol Use: Yes. Hx Substance Use: Yes. Substance Use Type: Alcohol. Hx Substance Use Treatment : Yes (1 Previous Detox Admission at [facility] (08/2016).). - Substances Abused. * * Alcohol-beer. Route: Oral. Frequency: Daily. Amount used: 6 (40 oz.). Age of first use: 11. Date of Last Use: 11/07/16. Confirmed by patient. Medical History: Patient endorses good general health. Psychiatric History: History of psychiatric hospitalizations at [facility] (1992 + 1993).No history of suicide attempt but serious suicidal ideation/intent to jump off of a roof at the of his biological mother.Diagnosed with MDD.Prescribed zoloft 50 mg/day.Mr Foster sees a psychiatrist at the [facility] in [facility]. Physical/Sexual Abuse/Trauma History: Patient denies. Additional Comment: Drug Screen is negative. Mental Status Exam - Mental Status Exam Alert and Oriented to: Place, Person Cognitive Function: Good Patient Appearance: Well Groomed Mood: Hopeful, Euthymic Affect: Appropriate, Normal Range Patient Behavior: Fatigued, Cooperative Speech Pattern: Clear Voice Loudness: Normal Thought Process: Goal Oriented Thought Disorder: Not Present Hallucinations: Denies Suicidal Ideation: Denies Homicidal Ideation: Denies Insight/Judgement: Poor Sleep: Well Appetite: Good Muscle strength/Tone: Normal Gait/Station: Normal Psychiatric Findings - Problem List ([place] 1, 2,3) (1) Alcohol dependence with uncomplicated withdrawal Current Visit: Yes Status: Acute (2) Nicotine dependence Current Visit: Yes Status: Acute Qualifiers: Nicotine product type: cigarettes Substance use status: uncomplicated Qualified Code(s): F17.210 - Nicotine dependence, cigarettes, uncomplicated (3) History of bipolar disorder Current Visit: Yes Status: Chronic (4) Hypertension Current Visit: Yes Status: Chronic Qualifiers: Hypertension type: essential hypertension Qualified Code(s): I10 - Essential (primary) hypertension - Initial Treatment Plan Initial Treatment Plan: Psychoeducation.Detoxification.Medication : zoloft 50 mg po hs.Side effects/benefits discussed with the patient.He agrees with this plan.Observation.
[2016-11-10] MEDS: THIAMINE HCL 100 MG TABLET (FP) PO SCH (22:32)
[2016-11-11] MEDS: chlordiazePOXIDE HCL 25 MG CAPSULE PO SCH ×2 (05:49→10:29)
[2016-11-11] MEDS ORDERED: SERTRALINE HCL 50 MG TABLET (FP) PO SCH (10:00)
[2016-11-11] MEDS: PRENATAL VITAMINS W/ FOLIC ACID TABLET (FP) PO SCH (10:29)
--- NOTE | 2016-11-11 12:50 | PN ---
[facility] CIWA - CIWA Score Nausea/Vomitin-No Nausea/No Vomiting Muscle Tremors: 2 Anxiety: 3 Agitation: 3 Paroxysmal Sweats: 2 Orientation: 0-Oriented Tacttile Disturbances: 0-None Auditory Disturbances: 0-None Visual Disturbances: 0-None Headache: 0-None Present CIWA-Ar Total Score: 10 S Progress Note (SOAP) Subjective: anxiety,tremors,sweating,interrupted sleep,restless Objective: 11/11/16 12:50 Vital Signs - 8 hr 11/11/16 11/11/16 06:39 10:00 Temperature 97.9 F 98.2 F Pulse Rate 73 86 Respiratory 20 18 Rate Blood Pressure 110/68 119/68 Laboratory Tests 11/09/16 11/10/16 11/10/16 20:28 06:10 06:10 WBC 4.5 RBC 4.97 Hgb 15.4 Hct 46.1 MCV 92.7 MCHC 33.3 RDW 13.5 Plt Count 298 MPV 8.4 Sodium 140 Potassium 4.9 Chloride 99 Carbon Dioxide 32 Anion Gap 9 BUN 13 Creatinine 1.0 Creat Clearance w eGFR > 60 Random Glucose 116 H D Calcium 10.0 Total Bilirubin 0.5 D AST 20 ALT 23 Alkaline Phosphatase 96 Total Protein 7.6 Albumin 4.1 Urine Color Yellow Urine Appearance Clear Urine pH 8.0 D Ur Specific [place] 1.015 Urine Protein Negative Urine Glucose (UA) Negative Urine Ketones Negative Urine Blood Negative Urine Nitrite Negative Urine Bilirubin Negative Urine Urobilinogen Negative Ur Leukocyte Esterase Negative RPR Titer 11/10/16 06:10 WBC RBC Hgb Hct MCV MCHC RDW Plt Count MPV Sodium Potassium Chloride Carbon Dioxide Anion Gap BUN Creatinine Creat Clearance w eGFR Random Glucose Calcium Total Bilirubin AST ALT Alkaline Phosphatase Total Protein Albumin Urine Color Urine Appearance Urine pH Ur Specific [place] Urine Protein Urine Glucose (UA) Urine Ketones Urine Blood Urine Nitrite Urine Bilirubin Urine Urobilinogen Ur Leukocyte Esterase RPR Titer Nonreactive labs noted Assessment: 11/11/16 12:50 Withdrawal sx. Plan: Continue detox
[2016-11-11] MEDS: chlordiazePOXIDE 5 MG CAPSULE PO SCH ×2 (18:07→23:03)
[2016-11-11 21:38] VITALS: BP 139/67; PULSE 74; TEMP 99
[2016-11-11] MEDS: THIAMINE HCL 100 MG TABLET (FP) PO SCH (23:02)
--- NOTE | 2016-11-12 00:01 | PN ---
[facility] Progress Note Note: INFORMED CLIENT WANTS TO SIGN OUT AMA. CLIENT REPORTS HE HAS 2 JOBS AND MUST LEAVE TONIGHT. D/W CLIENT THAT IS AMA. INFORMED OF LACK OF TRANSPORTATION AT THIS TIME. CLIENT VERBALIZED UNDERSTANDING AND WOULD LIKE TO PROCEED WITH AMA.
--- NOTE | 2016-11-12 00:04 | DS ---
[facility] Detox Discharge Summary Admission Date: 11/09/16 Discharge Date: 11/12/16 - History Present History: Alcohol Dependence Pertinent Past History: WITHDRAWAL SX'S - Physical Exam Results Vital Signs: Vital Signs Temperature 99 F 11/11/16 21:38 Pulse Rate 74 11/11/16 21:38 Respiratory Rate 18 11/11/16 21:38 Blood Pressure 139/67 11/11/16 21:38 O2 Sat by Pulse Oximetry (%) Pertinent Admission Physical Exam Findings: WITHDRAWAL SX'S - Treatment Hospital Course: Discharged Condition Good Patient has Accepted a Rehab Referral to: DECLINED - Medication Discharge Medications: Ambulatory Orders Sertraline HCl [Zoloft -] 50 mg PO HS 08/28/16 Sertraline HCl [Zoloft -] 50 mg PO DAILY #30 tablet 11/10/16 - Diagnosis (1) Alcohol dependence with uncomplicated withdrawal Status: Acute (2) Nicotine dependence Status: Acute Qualifiers: Nicotine product type: cigarettes Substance use status: uncomplicated Qualified Code(s): F17.210 - Nicotine dependence, cigarettes, uncomplicated (3) Hypertension Status: Chronic Qualifiers: Hypertension type: essential hypertension Qualified Code(s): I10 - Essential (primary) hypertension (4) History of bipolar disorder Status: Chronic - AMA Did Patient Leave Against Medical Advice: Yes (HAS TO LEAVE BECAUSE OF WORK IN THE MORNING)
[2016-11-12] MEDS ORDERED: chlordiazePOXIDE HCL 10 MG CAPSULE PO SCH (17:00)
== END 2016-11-12 00:03 | disposition left against medical advice (07) | DRG 770 ==
LOC: YASAS 09:40 → Y6N 13:58
PROVIDERS: ADMIT Internal Medicine; ATTEND Internal Medicine
PROC: HZ2ZZZZ Detoxification Services for Substance Abuse Treatment (ICD-10-PCS; principal; 2016-11-09)
DX: F10.230 Alcohol dependence with withdrawal, uncomplicated (principal); F17.210 Nicotine dependence, cigarettes, uncomplicated; I10 Essential (primary) hypertension; Z86.59 Personal history of other mental and behavioral disorders; Z91.5 Personal history of self-harm
CPT/HCPCS: 36415; 80053; 81003; 85027; 86593; 93005; 93010

== ENCOUNTER 2016-12-11 08:31 | Inpatient (IN) | payer OTHER ==
[2016-12-11 10:09] VITALS: BMI 24.3
--- NOTE | 2016-12-11 12:19 | HP ---
Admission [facility] Chief Complaint: REHAB TX FOR ALCOHOL DEPENDENCE Allergies/Adverse Reactions: Allergies Allergy/AdvReac Type Severity Reaction Status Date / Time peanut Allergy Severe Hives Verified 12/11/16 10:29 shellfish derived Allergy Severe Swelling Verified 12/11/16 10:29 strawberry Allergy Severe Hives Verified 12/11/16 10:29 No Known Drug Allergies Allergy Verified 12/11/16 10:29 NKDA Allergy Uncoded 12/11/16 10:29 History of Present Illness: 41 Y/O AA/MALE WITH A HX OF ALCOHOL DEPENDENCE SEEKING REHAB TX Exam Limitations: No Limitations - Ebola screening Have you traveled outside of the country in the last 21 days: No Have you had contact with anyone from an Ebola affected area: No Have you been sick,other than usual withdrawal symptoms: No Do you have a fever: No - Review of Systems Constitutional: No Symptoms Reported EENT: reports: No Symptoms Reported Respiratory: reports: No Symptoms reported Cardiac: reports: No Symptoms Reported GI: reports: No Symptoms Reported : reports: No Symptoms Reported Musculoskeletal: reports: No Symptoms Reported Integumentary: reports: No Symptoms Reported Neuro: reports: No Symptoms reported Endocrine: reports: No Symptoms Reported Hematology: reports: Anemia Psychiatric: reports: Orientated x3, Anxious, Depressed (HX BIPOLAR DISORDER) Other Systems: Reviewed and Negative Patient History - Patient Medical History Hx Anemia: No Hx Asthma: No Hx Chronic Obstructive Pulmonary Disease (COPD): No Hx Cancer: No Hx Cardiac Disorders: No Hx Congestive Heart Failure: No Hx Hypertension: Yes (ON/OFF 'WHEN ANGRY"; BUT NOT ON MED) Hx Hypercholesterolemia: No Hx Pacemaker: No HX Cerebrovascular Accident: No Hx Seizures: No Hx Dementia: No Hx Diabetes: No Hx Gastrointestinal Disorders: No Hx Liver Disease: No Hx Genitourinary Disorders: No Hx Sexually Transmitted Disorders: No Hx Renal Disease (ESRD): No Hx Thyroid Disease: No Hx Human Immunodeficiency Virus (HIV): No (NEGATIVE) Hx Hepatitis C: No (NEGATIVE) Hx Depression: Yes (ON ZOLOFT 50 MG HS) Hx Suicide Attempt: No (DENIES) Hx Bipolar Disorder: Yes Hx Schizophrenia: No - Patient Surgical History Past Surgical History: No Hx Neurologic Surgery: No Hx Cataract Extraction: No Hx Cardiac Surgery: No Hx Lung Surgery: No Hx Breast Surgery: No Hx Breast Biopsy: No Hx Abdominal Surgery: No Hx Appendectomy: No Hx Cholecystectomy: No Hx Genitourinary Surgery: No Hx Orthopedic Surgery: No Anesthesia Reaction: No - PPD History Previous Implant?: Yes Documented Results: Negative w/proof Implanted On Prior [facility] Admission?: Yes Date: 08/30/16 Results: 0 mm PPD to be Administered?: No - Reproductive History Patient is a Female of Child Bearing Age (11 -55 yrs old): No (MALE) - Smoking Cessation Smoking history: Current every day smoker Have you smoked in the past 12 months: Yes Aproximately how many cigarettes per day: 2 Cigars Per Day: 0 Hx Chewing Tobacco Use: No Initiated information on smoking cessation: Yes 'Breaking Loose' booklet given: 12/11/16 - Substance & Tx. History Hx Alcohol Use: Yes (BEER) Substance Use Type: Alcohol Hx Substance Use Treatment: Yes (LAST TX AT [facility] DETOX/CURRENT TX AT [facility]) - Substances Abused Alcohol Route: Oral Frequency: 1-2 times per week Amount used: 4 40 oz beers Age of first use: 11 Date of Last Use: 12/11/16 Family Disease History - Family Disease History Family Disease History: Other: Mother (Bipolar disorder, .) Admission Physical Exam [facility] - Vital Signs Vital Signs: Vital Signs - 24 hr 12/11/16 10:04 Temperature 98.3 F Pulse Rate 84 Respiratory 18 Rate Blood Pressure 125/76 - Physical General Appearance: Yes: No Apparent Distress HEENTM: Yes: EOMI, Normocephalic, ITZEL Respiratory: Yes: Chest Non-Tender, Lungs Clear, Normal Breath Sounds, No Respiratory Distress Neck: Yes: Supple, Trachea in good position Breast: Yes: Breast Exam Deferred Cardiology: Yes: Regular Rhythm, Regular Rate, S1, S2 Abdominal: Yes: Normal Bowel Sounds, Non Tender, Soft Genitourinary: Yes: Other Back: Yes: Within Normal Limits Musculoskeletal: Yes: full range of Motion, Gait Steady Extremities: Yes: Normal Range of Motion, Non-Tender Neurological: Yes: development geologist II-XII NML intact, Fully Oriented, Alert, Motor Strength 5/5 Integumentary: Yes: Dry, Warm Lymphatic: Yes: Within Normal Limits - Diagnostic (1) Alcohol dependence with uncomplicated withdrawal Current Visit: Yes Status: Chronic (2) Nicotine dependence Current Visit: Yes Status: Chronic Qualifiers: Nicotine product type: cigarettes Substance use status: uncomplicated Qualified Code(s): F17.210 - Nicotine dependence, cigarettes, uncomplicated (3) Hypertension Current Visit: Yes Status: Chronic Qualifiers: Hypertension type: essential hypertension Qualified Code(s): I10 - Essential (primary) hypertension Cleared for Admission [facility] - Detox or Rehab Clae[facility] for Rehab Admission: Yes S Breath Alcohol Content Breath Alcohol Content: 0.032 Urine Drug Screen - Results Drug Screen Negative: Yes
[2016-12-11] MEDS ORDERED: MAG HYDROX/AL HYDROX/SIMETH 30 ML UNIT-DOSE CUP PO PRN (12:47)
[2016-12-11] MEDS ORDERED: LOPERAMIDE HCL 2 MG CAPSULE PO PRN (12:47)
[2016-12-11] MEDS ORDERED: MAGNESIUM CITRATE 300 ML BOTTLE PO PRN (12:47)
[2016-12-11] MEDS ORDERED: guaiFENesin/D-METHORPHAN HB 10 ML UNIT-DOSE CUPS PO PRN (12:47)
[2016-12-11] MEDS ORDERED: IBUPROFEN 400 MG TABLET (FP) PO PRN (12:47)
[2016-12-11] MEDS ORDERED: MAGNESIUM HYDROX 2400MG/30ML ORAL SUSPENSION 30 ML CUP PO PRN (12:47)
[2016-12-11] MEDS ORDERED: MENTHOL/PHENOL 1 EACH UD MM PRN (12:47)
[2016-12-11] MEDS ORDERED: ACETAMINOPHEN 325 MG TABLET (FP) PO PRN (12:47)
[2016-12-11] MEDS ORDERED: NICOTINE POLACRILEX 2 MG GUM BUC PRN (12:47)
[2016-12-11] MEDS ORDERED: diphenhydrAMINE HCL 50 MG CAPSULE PO PRN (12:47)
[2016-12-11] MEDS ORDERED: P-EPHED 60MG/TRIPROLIDI 2.5MG TABLET PO PRN (12:47)
[2016-12-11] MEDS: NICOTINE 14 MG/24 HOURS TOPICAL PATCH TD SCH (14:34)
--- NOTE | 2016-12-11 15:10 | HP ---
Psychiatrist Admission - Data Date of interview: 12/11/16 Admission source: [facility] Identifying data: This is the first 5n inpatient rehabilitation admisson for this 41 year old AA male, who is single without children, domiciled and unemployed on SSI benefits. Medical History: Patient reports good physical health Psychiatric History: Patient reports was diagnosed with Bipolar disorder, first psychiatris chospitalization in [id number] following the of his mother on his birthday, patient reported he was severely depressed and tried to jump off the roof of the building. States he sees the psychiatrist at [facility] and on Zoloft 50 mg po daily. Physical/Sexual Abuse/Trauma History: Patient denies history of sexual, physical and verbal abuse. Additional Comment: Patient on probation till 2018 Vital Signs: Vital Signs - 24 hr 12/11/16 10:04 Temperature 98.3 F Pulse Rate 84 Respiratory 18 Rate Blood Pressure 125/76 Allergies/Adverse Reactions: Allergies Allergy/AdvReac Type Severity Reaction Status Date / Time peanut Allergy Severe Hives Verified 12/11/16 10:29 shellfish derived Allergy Severe Swelling Verified 12/11/16 10:29 strawberry Allergy Severe Hives Verified 12/11/16 10:29 No Known Drug Allergies Allergy Verified 12/11/16 10:29 NKDA Allergy Uncoded 12/11/16 10:29 Date of last physical exam: 12/11/16 Concur with the findings of this exam: Yes - Substance Abuse/Tx History Hx Alcohol Use: Yes (unable to stop drinking) Hx Substance Use: No Substance Use Type: Alcohol (daily beer 6(40oz),) Hx Substance Use Treatment: Yes (detox at [facility], [facility]) - Admission Criteria Previous failed treatment: Yes Poor recovery environment: Yes Comorbidities: Yes Lacks judgement: Yes Mental Status Exam - Mental Status Exam Alert and Oriented to: Time, Place, Person Cognitive Function: Good Patient Appearance: Well Groomed Mood: Hopeful Affect: Appropriate, Mood Congruent Patient Behavior: Appropriate, Cooperative Speech Pattern: Clear, Appropriate Voice Loudness: Normal Thought Process: Intact Thought Disorder: Not Present Hallucinations: Denies Suicidal Ideation: Denies Homicidal Ideation: Denies Insight/Judgement: Fair Sleep: Fair Appetite: Fair Muscle strength/Tone: Normal Gait/Station: Normal Psychiatric Findings - Problem List ([place] 1, 2,3) (1) Nicotine dependence Current Visit: Yes Status: Chronic Qualifiers: Nicotine product type: cigarettes Substance use status: uncomplicated Qualified Code(s): F17.210 - Nicotine dependence, cigarettes, uncomplicated (2) Alcohol dependence Current Visit: Yes Status: Acute (3) Bipolar I disorder, most recent episode depressed Current Visit: Yes Status: Acute - Initial Treatment Plan Initial Treatment Plan: Discussed with the patient indications and properties of Campral, patient agreed to start treatment, will continue Zoloft, monitor progress as needed.
[2016-12-11 16:22] LABS: MCH 30.3 pg (25.7-33.7); MCHC 32.8 g/dl (32.0-35.9); MEAN CELL VOLUME 92.3 fl (80-96); MEAN PLT VOLUME 8.5 fl (7.5-11.1); PLATELET COUNT 290 K/MM3 (134-434); RDW 13.5 % (11.9-15.9); WHITE BLOOD COUNT 5.2 K/mm3 (4.0-10.0)
[2016-12-11 16:31] LABS: ALBUMIN 4.3 g/dl (3.4-5.0); ANION GAP 6 (8-16); CO2 32 mmol/L (21-32); GLUCOSE,RANDOM 164 mg/dL (74-106); SGOT/AST 23 U/L (15-37)
[2016-12-11 16:34] LABS: ALK PHOS 96 U/L (45-117); BILIRUBIN,TOTAL 0.9 mg/dL (0.2-1.0); CREATININE 1.2 mg/dL (0.7-1.3); SGPT/ALT 23 U/L (12-78); TOT PROT 8.3 g/dl (6.4-8.2)
[2016-12-11 16:43] LABS: URINE APPEARANCE CLEAR; URINE BILIRUBIN NEGATIVE (NEGATIVE); URINE BLOOD NEGATIVE (NEGATIVE); URINE COLOR YELLOW; URINE GLUCOSE (UA) NEGATIVE (NEGATIVE); URINE KETONE NEGATIVE (NEGATIVE); URINE LEUK ESTERASE NEGATIVE (NEGATIVE); URINE NITRITE NEGATIVE (NEGATIVE); URINE PROTEIN NEGATIVE (NEGATIVE); URINE UROBILINOGEN NEGATIVE mg/dL (0.2-1.0)
[2016-12-11 20:05] LABS: SICKLE CELL SCREEN NEGATIVE (NEGATIVE)
[2016-12-11] MEDS: SERTRALINE HCL 50 MG TABLET (FP) PO SCH (21:07)
[2016-12-11] MEDS: THIAMINE HCL 100 MG TABLET (FP) PO SCH (21:07)
[2016-12-11] MEDS: ACAMPROSATE CALCIUM 333 MG TABLET.DR PO SCH (21:07)
[2016-12-12] MEDS: ACAMPROSATE CALCIUM 333 MG TABLET.DR PO SCH ×3 (06:04→21:40)
[2016-12-12] MEDS: PRENATAL VITAMINS W/ FOLIC ACID TABLET (FP) PO SCH (09:58)
[2016-12-12] MEDS: NICOTINE 14 MG/24 HOURS TOPICAL PATCH TD SCH (09:58)
[2016-12-12] MEDS: THIAMINE HCL 100 MG TABLET (FP) PO SCH (21:39)
[2016-12-12] MEDS: SERTRALINE HCL 50 MG TABLET (FP) PO SCH (21:40)
[2016-12-13] MEDS: ACAMPROSATE CALCIUM 333 MG TABLET.DR PO SCH (06:17)
[2016-12-13 06:45] VITALS: BP 126/79; PULSE 66; TEMP 97.8
[2016-12-13] MEDS: NICOTINE 14 MG/24 HOURS TOPICAL PATCH TD SCH (10:00)
[2016-12-13] MEDS: PRENATAL VITAMINS W/ FOLIC ACID TABLET (FP) PO SCH (10:00)
--- NOTE | 2016-12-13 11:14 | PN ---
Psychiatric Progress Note Vital Signs: Vital Signs Period Temp Pulse Resp BP Sys/Cueva Pulse Ox Last 24 Hr 97.8 F 66 16-16 126/79 Date of Session: 12/13/16 Chief Complaint:: "leaving" HPI: Patient is a 41 year old male, with history of alcohol, nicotine dependence comorbid Bipolar I disorder who was admitted on 12/11/16. Current Medications: Active Medications Generic Name Dose Route Start Last Admin Trade Name Freq PRN Reason Stop Dose Admin Acamprosate 666 mg 12/11/16 22:00 12/13/16 06:17 Campral - PO 666 mg TID BLANQUITA Administration Acetaminophen 650 mg 12/11/16 12:47 Tylenol - PO Q4H PRN PAIN Al Hydroxide/Mg Hydroxide 30 ml 12/11/16 12:47 Mylanta Oral Suspension - PO Q6H PRN DYSPEPSIA Diphenhydramine HCl 50 mg 12/11/16 12:47 Benadryl - PO HSMR1 PRN INSOMNIA Eucalyptus/Menthol/Phenol/Sorbitol 1 each 12/11/16 12:47 Cepastat Lozenge - MM Q4H PRN SORE THROAT Guaifenesin 10 ml 12/11/16 12:47 Robitussin Dm - PO Q6H PRN COUGH Ibuprofen 400 mg 12/11/16 12:47 Motrin - PO Q6H PRN SEVERE PAIN Loperamide HCl 4 mg 12/11/16 12:47 Imodium - PO Q6H PRN DIARRHEA Magnesium Citrate 300 ml 12/11/16 12:47 Citroma - PO Q48H PRN CONSTIPATION Magnesium Hydroxide 30 ml 12/11/16 12:47 Milk Of Magnesia - PO DAILY PRN CONSTIPATION Nicotine 14 mg 12/11/16 13:00 12/13/16 10:00 Nicoderm Patch - TD Not Given DAILY BLANQUITA Nicotine Polacrilex 2 mg 12/11/16 12:47 Nicorette Gum - BUC Q2H PRN NICOTINE REPLACEMENT RX Multivit/Folic Acid/Iron 1 tab 12/12/16 10:00 12/13/16 10:00 Vitamins (Sjr) - PO 1 tab DAILY BLANQUITA Administration Pseudoephedrine/Triprolidine 1 combo 12/11/16 12:47 Actifed - PO TID PRN NASAL CONGESTION Sertraline HCl 50 mg 12/11/16 22:00 12/12/16 21:40 Zoloft - PO 50 mg HS BLANQUITA Administration Thiamine HCl 100 mg 12/11/16 22:00 12/12/16 21:39 Vitamin B1 - PO 100 mg HS BLANQUITA Administration Current Side Effect: No Lab tests ordered: No Lab tests reviewed: Yes Provider note:: Alfreda reported that he is leaving treatment AMA, met with the patient to explore reasons for his decision, patient begin to state he must go to take care of the bills he need to pay. Patient was encouraged to stay and focus in his treatment but adamant to leave.Patient reports he will see his electronic warfare officer and attend [facility]. He refused scripts for Zoloft, reported he has medications. Patient is stable for AMA. Total face to face time:: 35 Mental Status Exam - Mental Status Exam Alert and Oriented to: Time, Place, Person Cognitive Function: Good Patient Appearance: Well Groomed Mood: Hopeful Affect: Appropriate, Mood Congruent Patient Behavior: Cooperative Speech Pattern: Appropriate Voice Loudness: Normal Thought Process: Intact, Goal Oriented Thought Disorder: Not Present Hallucinations: Denies Suicidal Ideation: Denies Homicidal Ideation: Denies Insight/Judgement: Fair Sleep: Fair Appetite: Fair Muscle strength/Tone: Normal Gait/Station: Normal Psychiatric Treatment Plan - Problem List (1) Nicotine dependence Current Visit: Yes Qualifiers: Nicotine product type: cigarettes Substance use status: uncomplicated Qualified Code(s): F17.210 - Nicotine dependence, cigarettes, uncomplicated (2) Alcohol dependence Current Visit: Yes (3) Bipolar I disorder, most recent episode depressed Current Visit: Yes
--- NOTE | 2016-12-13 16:39 | EKG ---
Test Reason : Blood Pressure : / mmHG Vent. Rate : 071 BPM Atrial Rate : 071 BPM P-R Int : 128 ms QRS Dur : 086 ms QT Int : 378 ms P-R-T Axes : 067 061 042 degrees QTc Int : 410 ms NORMAL SINUS RHYTHM NORMAL ECG WHEN COMPARED WITH ECG OF 09-NOV-2016 14:23, NO SIGNIFICANT CHANGE WAS FOUND Confirmed by CELESTINO DODSON MD ([id number]) on 12/13/2016 4:39:31 PM Referred By: Confirmed By:CELESTINO DODSON MD
== END 2016-12-13 11:00 | disposition left against medical advice (07) | DRG 770 ==
LOC: YASAS 08:31 → Y5N 12:51
PROVIDERS: ADMIT Psychiatry & Neurology Psychiatry; ATTEND Psychiatry & Neurology Psychiatry
PROC: HZ42ZZZ Group Counseling for Substance Abuse Treatment, Cognitive-Behavioral (ICD-10-PCS; principal; 2016-12-13)
DX: F10.20 Alcohol dependence, uncomplicated (principal); F17.210 Nicotine dependence, cigarettes, uncomplicated; F31.89 Other bipolar disorder
CPT/HCPCS: 36415; 80053; 81003; 85027; 85660; 86593; 93005; 93010

== ENCOUNTER 2024-01-21 17:45 | Emergency (ER) | payer OTHER ==
[2024-01-21 18:06] VITALS: BP 126/81; PULSE 100; RESP 16; TEMP 98.4; BMI 25.4
[2024-01-21] MEDS ORDERED: HALOPERIDOL LACTATE 5 MG/ML IM ONE (18:14)
[2024-01-21] MEDS ORDERED: HALOPERIDOL LACTATE 5 MG/ML ONE (18:16)
[2024-01-21] MEDS ORDERED: SERTRALINE HCL 50 MG TABLET (FP) ONE (18:21)
[2024-01-21] MEDS: SERTRALINE HCL 50 MG TABLET (FP) PO ONE (18:23)
[2024-01-21] MEDS ORDERED: ONDANSETRON 4 MG/2 ML VIAL IVPUSH ONE (18:25)
[2024-01-21] MEDS ORDERED: ACETAMINOPHEN INJECTION 100 ML ONE (18:38)
[2024-01-21] MEDS: ACETAMINOPHEN 1000 MG/100 ML BAG IVPB ONE (18:42)
[2024-01-21 18:50] LABS: INR 0.92 (0.83-1.09); PROTHROMBIN TIME (PATIENT) 10.6 SEC (9.7-13.0)
[2024-01-21 19:00] LABS: HEMATOCRIT 45.9 % (35.4-49); HEMOGLOBIN 15.5 GM/dL (11.7-16.9); MCH 29.8 pg (25.7-33.7); MCHC 33.7 g/dl (32.0-35.9); MEAN CELL VOLUME 88.4 fl (80-96); MEAN PLT VOLUME 7.3 fl (7.5-11.1); PLATELET COUNT 346 10^3/uL (134-434); RBC 5.19 M/mm3 (4.00-5.60); RDW 13.2 % (11.9-15.9); WHITE BLOOD COUNT 7.2 K/mm3 (4.0-10.0)
[2024-01-21] MEDS ORDERED: OLANZapine 2.5 MG TABLET PO ONE (19:03)
[2024-01-21 19:35] LABS: POTASSIUM 4.3 mmol/L (3.5-5.1)
[2024-01-21 19:37] LABS: CALCIUM 9.5 mg/dL (8.5-10.1)
[2024-01-21 19:38] LABS: ALBUMIN 4.2 g/dl (3.4-5.0); BLOOD UREA NITROGEN 9.2 mg/dL (7-18)
[2024-01-21 19:41] LABS: CREATININE 1.2 mg/dL (0.55-1.3)
[2024-01-21 19:42] LABS: BILIRUBIN,TOTAL 0.3 mg/dL (0.2-1); TOT PROT 8.6 g/dl (6.4-8.2)
[2024-01-21 19:58] LABS: HIV INTERPRETATION NEGATIVE (NEGATIVE)
[2024-01-21 20:38] LABS: ANISOCYTOSIS 0; MACROCYTOSIS 0
== END 2024-01-21 19:21 | disposition left against medical advice (07) ==
LOC: JER 17:45
PROC: 3E033NZ Introduction of Analgesics, Hypnotics, Sedatives into Peripheral Vein, Percutaneous Approach (ICD-10-PCS; principal; 2024-01-21)
DX: R10.11 Right upper quadrant pain (principal); K92.0 Hematemesis; R07.9 Chest pain, unspecified
CPT/HCPCS: 36415; 71045-TC-FY; 80053; 83690; 84484; 85025; 85610; 85730; 86803; 86850; 86900; 86901; 87389; 99284-25; J0131